=== PATIENT | female | born 1955 | race American Indian/Alaskan Native ===

== ENCOUNTER 2019-08-24 06:01 | Inpatient (IN) | payer SELFPAY ==
[2019-08-24] MEDS ORDERED: ASPIRIN 325 MG TAB PO ONE (06:05)
--- NOTE | 2019-08-24 06:57 | XRay Report ---
CHEST 1 VIEW INDICATION / CLINICAL INFORMATION: Chest Pain. COMPARISON: None available. FINDINGS: SUPPORT DEVICES: None. HEART / MEDIASTINUM: No significant abnormality. LUNGS / PLEURA: Mild pulmonary vascular congestion. Both lungs are otherwise clear. No pneumothorax. ADDITIONAL FINDINGS: No significant additional findings. IMPRESSION: 1. Mild pulmonary vascular congestion. Signer Name: Annia Valle MD Signed: 08/24/2019 6:53 AM Workstation Name: [id number]
--- NOTE | 2019-08-24 07:27 | Emergency Department Report ---
ED Chest Pain HPI - General Chief Complaint: Chest Pain Stated Complaint: CHEST PAIN Time Seen by Provider: 08/24/19 07:14 Source: patient Mode of arrival: Wheelchair Limitations: No Limitations - History of Present Illness Initial Comments: This is a 64-year-old female who came to the emergency department expressly for chest pain. She stated that the chest pain began approximately 2 hours prior to arrival in the emergency department. She did not complain of any neurological symptoms as per triage. She stated that the chest pain radiated to her left arm across her right chest. While she was in the waiting room the triage nurse was informed that she had right arm numbness. I believe they perceive that she had a left facial paresis and thereby a code stroke was called. I did examine the patient in the hallway returning from CT for the first time (which was my first opportunity). The patient was very vague to answer questions. She did describe chest pain that radiated to her left arm. She did describe some "numbness" of her right arm. She did not describe any facial weakness. On my preliminary exam she had no facial weakness. She had no upper or lower extremity drift. The patient was examined by a tele-neurologist. According to the tele- neurologist the patient was "ataxic". She also complained to the neurologist of right-sided weakness since yesterday. The neurologist also stated stated that she did not find any drift. She recommended that the patient have a CTA. This will be discussed with the admitting hospitalist. The patient's blood work is pending. The neurologist note is yet pending. The patient is a vague and a poor historian. She told me that she was treated for "fibrillation". She denied being treated for a heart attack in the past or being on anticoagulation. She has a history of hypertension and she is an insulin-dependent diabetic. Her Accu-Chek was in the 60s. I reexamined the patient and took a more detailed history: Patient states that her symptoms began at approximately 2:30 in the morning. However she is very variable with her account of symptoms. She states that her right arm numbness began in the waiting room. Thereafter, she states that she had numbness in her right arm and weakness in her right arm and leg since 2:30 in the morning. Her history is very variable. She states that she has a history of an anxiety disorder and previous prescription for xanax. She also is very variable in her history of chest pain. She stated that she had a heart attack at one point but shortly thereafter she described a cardiac catheterization which revealed no blockages. Thereafter she told me that she did not have a heart attack. Patient stated that at 2:30 in the morning she had difficulty in walking. She had no difficulty with her speech. At the time of this dictation the patient again has no right-sided drift. She states that she has numbness in her right arm. However her fine touch testing localizes perfectly well. On my examination again the patient has an NIH stroke score of 0-1 if we count her vague right arm numbness.. I do not find drift and I do not find a facial paresis. She is already been excluded from TPA by the tele-neurologist based on her last known well time. Being that she has no contraindications, I will order the CTA studies as recommended by the neurologist. She will be admitted to the hospitalist staff. Complaint: chest pain -: Gradual, hour(s) Onset: during rest Pain Location: left chest, right chest Pain Radiation: none Severity: moderate - Related Data Allergies Allergy/AdvReac Type Severity Reaction Status Date / Time iodine Allergy Unknown Verified 08/24/19 06:04 Sulfa (Sulfonamide Allergy Unknown Verified 08/24/19 06:04 Antibiotics) Heart Score - HEART Score History: Highly suspicious EKG: Significant ST-depression Age: 45-65 Risk factors: > 3 risk factors or hx of atherosclerotic disease Troponin: 1-3x normal limit HEART Score: 8 - Critical Actions Critical Actions: >7 pts:50-65% risk of adverse cardiac event. Early invasive measures ED Review of Systems ROS: Stated complaint: CHEST PAIN Other details as noted in HPI Constitutional: denies: chills, fever Eyes: denies: eye pain, eye discharge, vision change ENT: denies: ear pain, throat pain Respiratory: shortness of breath. denies: cough, wheezing Cardiovascular: chest pain. denies: palpitations Endocrine: no symptoms reported Gastrointestinal: nausea. denies: abdominal pain, diarrhea Genitourinary: denies: urgency, dysuria, discharge Musculoskeletal: denies: back pain, joint swelling, arthralgia Skin: denies: rash, lesions Neurological: denies: headache, weakness, paresthesias Psychiatric: denies: anxiety, depression Hematological/Lymphatic: denies: easy bleeding, easy bruising ED Past Medical Hx - Past Medical History Previous Medical History?: Yes Hx Hypertension: Yes Hx Diabetes: Yes - Surgical History Past Surgical History?: Yes Hx Cholecystectomy: Yes Additional Surgical History: hysterectomy, left wrist surgery - Social History Smoking Status: Current Some Day Smoker ED Physical Exam - General Limitations: No Limitations General appearance: alert, in no apparent distress - Head Head exam: Present: atraumatic, normocephalic - Eye Eye exam: Present: normal appearance. Absent: scleral icterus - ENT ENT exam: Present: mucous membranes moist - Neck Neck exam: Present: normal inspection. Absent: tenderness, meningismus - Respiratory Respiratory exam: Present: normal lung sounds bilaterally. Absent: respiratory distress - Cardiovascular Cardiovascular Exam: Present: regular rate, normal rhythm. Absent: systolic murmur, diastolic murmur, rubs, gallop - GI/Abdominal GI/Abdominal exam: Present: soft, normal bowel sounds. Absent: distended, tenderness, guarding, rebound, rigid - Extremities Exam Extremities exam: Present: normal inspection - Back Exam Back exam: Present: normal inspection - Neurological Exam Neurological exam: Present: alert, oriented X3, CN II-XII intact (Questionable facial asymmetry), motor sensory deficit (Questionable) - Psychiatric Psychiatric exam: Present: normal affect, normal mood - Skin Skin exam: Present: warm, dry, intact, normal color. Absent: rash ED Course Vital Signs 08/24/19 06:05 Temperature 98.7 F Pulse Rate 52 L Respiratory 18 Rate Blood Pressure 158/70 O2 Sat by Pulse 99 Oximetry HERBERT score - Herbert Score Age > 65: (0) No Aspirin use within the Past 7 Days: (0) No 3 or more CAD Risk Factors: (1) Yes 2 or more Angina events in past 24 hrs: (0) No Known CAD with more than 50% Stenosis: (0) No Elevated Cardiac Markers: (0) No ST Deviation Greater than 0.5mm: (1) Yes HERBERT Score: 2 ED Medical Decision Making - Lab Data Result diagrams: 08/24/19 06:46 08/24/19 06:46 Laboratory Results - last 24 hr 08/24/19 08/24/19 08/24/19 06:46 06:46 07:37 WBC 8.0 RBC 5.36 H Hgb 14.6 H Hct 44.8 H MCV 84 MCH 27 L MCHC 33 RDW 13.7 Plt Count 350 PT 12.6 INR 0.93 APTT 22.9 L Thrombin Time Sodium 138 Potassium 4.4 Chloride 98.4 Carbon Dioxide 22 Anion Gap 22 BUN 19 H Creatinine 0.8 Estimated GFR > 60 BUN/Creatinine Ratio 24 Glucose 379 H Calcium 9.2 Troponin T 0.016 08/24/19 07:37 WBC RBC Hgb Hct MCV MCH MCHC RDW Plt Count PT INR APTT Thrombin Time 17.2 Sodium Potassium Chloride Carbon Dioxide Anion Gap BUN Creatinine Estimated GFR BUN/Creatinine Ratio Glucose Calcium Troponin T - EKG Data -: EKG Interpreted by Me EKG shows normal: sinus rhythm, axis, intervals, QRS complexes Rate: normal - EKG Data Interpretation: other (High lateral and anterolateral lateral ST depression/T wave inversion consider ischemia) - Radiology Data Radiology results: report reviewed (CT the head showed old encephalomalacia and no acute process. Chest x-ray showed no acute process.) Critical care attestation.: If time is entered above; I have spent that time in minutes in the direct care of this critically ill patient, excluding procedure time. ED Disposition Clinical Impression: Acute coronary syndrome Stroke Qualifiers: CVA mechanism: unspecified Qualified Code(s): I63.9 - Cerebral infarction, unspecified Disposition: 09 OP ADMIT IP TO THIS HOSP Is pt being admited?: Yes Does the pt Need Aspirin: Yes Condition: Stable Referrals: LAURA ALEMAN MD [Primary Care Provider] - 3-5 Days Time of Disposition: 08:13
[2019-08-24 07:34] LABS: Hematocrit 44.8 % (30.3-42.9); Hemoglobin 14.6 gm/dl (10.1-14.3); Mean Corpuscular HGB Conc 33 % (30-34); Mean Corpuscular Volume 84 fl (79-97); Platelet Count 350 K/mm3 (140-440); Red Blood Count 5.36 M/mm3 (3.65-5.03); Red Cell Distribution Width 13.7 % (13.2-15.2)
--- NOTE | 2019-08-24 07:40 | Cat Scan Report ---
CT head/brain wo con INDICATION / CLINICAL INFORMATION: STROKE PROTOCOL!!! Difficulty speaking, right sided weakness. No previous history of any other strok e(s).. TECHNIQUE: Axial CT imaging of the brain was obtained without contrast. Coronal and sagittal reformatted imaging obtained and reviewed. All CT scans at this location are performed using CT dose reduction for ALAR A by means of automated exposure control. COMPARISON: None available. FINDINGS: No intracranial hemorrhage, mass, or midline shift. No extra-axial fluid collection or suggestion of acute territorial infarction. Ventricular system and basilar cisterns are unremarkable. There are a f ew small areas of encephalomalacia in the left inferior temporal lobe and left occipital lobe consist ent with old areas of infarction. Visualized paranasal sinuses and mastoid air cells are well aerated and clear, other than small mucou s retention cyst within the left maxillary antrum.. No calvarial abnormality. IMPRESSION: 1. No evidence for acute CVA at this time. 2. Multiple small areas of encephalomalacia in the left temporal lobe and left occipital lobe most co nsistent with old CVAs. 3. This report was given to Dr. Toure by telephone at 0635 hours [employer]IRLEY OPERATOR Signer Name: Annia Valle MD Signed: 08/24/2019 7:36 AM Workstation Name: [id number]
--- NOTE | 2019-08-24 07:44 | Emergency Department Report ---
ED General Adult HPI - General Chief complaint: Chest Pain Stated complaint: CHEST PAIN Time Seen by Provider: 08/24/19 07:14 Source: patient Mode of arrival: Wheelchair Limitations: No Limitations - Related Data Allergies Allergy/AdvReac Type Severity Reaction Status Date / Time iodine Allergy Unknown Verified 08/24/19 06:04 Sulfa (Sulfonamide Allergy Unknown Verified 08/24/19 06:04 Antibiotics) ED Review of Systems ROS: Stated complaint: CHEST PAIN Other details as noted in HPI ED Past Medical Hx - Past Medical History Previous Medical History?: Yes Hx Hypertension: Yes Hx Diabetes: Yes - Surgical History Past Surgical History?: Yes Hx Cholecystectomy: Yes Additional Surgical History: hysterectomy, left wrist surgery - Social History Smoking Status: Current Some Day Smoker ED Physical Exam - General Limitations: No Limitations ED Course Vital Signs 08/24/19 06:05 Temperature 98.7 F Pulse Rate 52 L Respiratory 18 Rate Blood Pressure 158/70 O2 Sat by Pulse 99 Oximetry - Reevaluation(s) Reevaluation #1: 08/24/19 07:43 [facility] Date of Service: 08/24/2019 07:11:01 Impression: Rule Out Acute Ischemic Stroke Left Hemispheric Infarct Posterior Circulation Infarct Comments/Sign-Out: Patient with history of DM and hypertension who was well at 23:00 on 08/22 and p resents with chest pain, pressure, nausea, dizziness and right sided weakness and numbness that began shortly after 11pm, she already noted weakness on the right at 3:30am when she could not get out of bed. Presentation c/w acute coronary syndrome and concurrent possible posterior circulation/brainstem infarct. Recommend admission for full workup. Mechanism of Stroke: Possible Thromboembolic Small Vessel Disease Metrics: Last Known Well: 08/23/2019 23:00:00 [employer] Notification Time: 08/24/2019 07:10:34 Arrival Time: 08/24/2019 06:08:00 Symptom Onset During ED Stay: 08/24/2019 07:24:26 Stamp Time: 08/24/2019 07:11:01 Time First Login Attempt: 08/24/2019 07:17:01 Video Start Time: 08/24/2019 07:17:01 Symptoms: chest pain and nausea NIHSS Start Assessment Time: 08/24/2019 07:35:07 Patient is not a candidate for tPA. Patient was not deemed candidate for tPA thrombolytics because of Last Well Known Above 4.[address] head showed no acute hemorrhage or acute core infarct. CT head was reviewed and results were: no acute changes, prelim Clinical Presentation is Suggestive of Large Vessel Occlusive Disease, Recommendations are as Follows CTA Head and Neck. Advanced Imaging to be Reviewed by ED Provider and ANUP. ED Physician notified of diagnostic impression and management plan on 08/24/2019 07:40:25 Our recommendations are outlined below. Recommendations: Activate Stroke Protocol Admission/Order Set Stroke/Telemetry Floor Neuro Checks Bedside Swallow Eval DVT Prophylaxis IV Fluids, Normal Saline Head of Bed Below 30 Degrees Euglycemia and Avoid Hyperthermia (PRN Acetaminophen) Initiate Aspirin Recommended Scan: MRI Head Carotid Dopplers Echocardiogram - Transthoracic Echocardiogram Lipid Panel to Be Obtained, if Not Done in the Last 30 Days Therapies: Physical Therapy, Occupational Therapy, Speech Therapy Assessment When Applicable Dysphaghia Screen: Swallow Evaluation, Bedside NPO Until Swallow Evaluation DVT prophylaxis: Lovenox or LMW Heparin Disposition: Neurology Follow Up Recommended Sign Out: Discussed with Emergency Department Provider History of Present Illness: Patient is a 64 year old Female. Patient was brought by EMS for symptoms of chest pain and nausea Patient presented to the hospital with chest pain with radiation to the left arm for two hours prior to arrival. AT home she was reporting right arm numbness. She states at 11pm she went to a movie and afterwards she felt weak and nauseated. Then she began to feel chest pain and naseated at 1-2am. Her right arm was weak and numb on the right and weakness of the right leg around 3:30. She had trouble getting out of bed. She states she was normal at 11pm. Right at change of shift, the daughter alerted the nurse that her mother was experiencing trouble speaking and left facial droop. History includes diabetes and hypertension. CT head showed no acute hemorrhage or acute core infarct. CT head was reviewed. Last seen normal was beyond 4.5 hours of presentation. There is no history of hemorrhagic complications or intracranial hemorrhage. There is no history of Recent Anticoagulants. There is no history of recent major surgery. There is no history of recent stroke. Examination: BP(158/70), Pulse(52), Blood Glucose(344) 1A: Level of Consciousness - Alert; keenly responsive + 0 1B: Ask Month and Age - Both Questions Right + 0 1C: Blink Eyes & Squeeze Hands - Performs Both Tasks + 0 2: Test Horizontal Extraocular Movements - Normal + 0 3: Test Visual Ballard - No Visual Loss + 0 4: Test Facial Palsy (Use Grimace if Obtunded) - Minor paralysis (flat nasol abial fold, smile asymmetry) + 1 5A: Test Left Arm Motor Drift - No Drift for 10 Seconds + 0 5B: Test Right Arm Motor Drift - Drift, but doesn't hit bed + 1 6A: Test Left Leg Motor Drift - No Drift for 5 Seconds + 0 6B: Test Right Leg Motor Drift - Drift, but doesn't hit bed + 1 7: Test Limb Ataxia (FNF/Heel-Gurrola) - Ataxia in 1 Limb + 1 8: Test Sensation - Mild-Moderate Loss: Less Sharp/More Dull + 1 9: Test Language/Aphasia - Normal; No aphasia + 0 10: Test Dysarthria - Mild-Moderate Dysarthria: Slurring but can be understood + 1 11: Test Extinction/Inattention - No abnormality + 0 NIHSS Score: 6 Patient was informed the Neurology Consult would happen via TeleHealth consult by way of interactive audio and video telecommunications and consented to receiving care in this manner. Due to the immediate potential for life-threatening deterioration due to underlying acute neurologic illness, I spent 35 minutes providing critical care. This time includes time for face to face visit via telemedicine, review of medical records, imaging studies and discussion of findings with providers, the patient and/or family. Dr Gina Fragoso [facility] Case [id number] ED Medical Decision Making - Lab Data Result diagrams: 08/24/19 06:46 Critical care attestation.: If time is entered above; I have spent that time in minutes in the direct care of this critically ill patient, excluding procedure time. ED Disposition Clinical Impression: Stroke Disposition: DC-[id number] OP ADMIT IP TO THIS HOSP Is pt being admited?: Yes Does the pt Need Aspirin: Yes Condition: Stable Referrals: LAURA ALEMAN MD [Primary Care Provider] - 3-5 Days
[2019-08-24 07:57] LABS: BUN/Creatinine Ratio 24; Blood Urea Nitrogen 19 mg/dL (7-17); Calcium 9.2 mg/dL (8.4-10.2); Hemolysis Index 5
[2019-08-24 07:59] LABS: INR 0.93 (0.87-1.13)
[2019-08-24 08:00] LABS: Partial Thromboplastin Time 22.9 Sec. (24.2-36.6)
[2019-08-24] MEDS ORDERED: MORPHINE 2 MG/1 ML INJ IV ONE (08:14)
[2019-08-24] MEDS ORDERED: ONDANSETRON 4 MG/2 ML INJ IV ONE (08:14)
--- NOTE | 2019-08-24 08:24 | History and Physical Report ---
History of Present Illness Date of examination: 08/24/19 Date of admission: 08/24/19 Chief complaint: chest pain with rightsided weakness History of present illness: Patient is a 64 y/o AAF with history of DM and hypertension who presents with chest pain, pressure, nausea, dizziness and right sided weakness and numbness that began at 3:30am when she could not get out of bed while waiting in the ER. She describes her chest pain as left-sided retrosternal, exertional, 7 out of 10 in intensity, pressure type and relieved by pain medication that she got in the ER. She also noted to have elevated troponin on 2nd set. Head CT negative for acute CVA, showed multiple small areas of encephalomalacia in the left temporal lobe and left occipital lobe most c/w old CVAs. Tele neurology evaluated the patient and suspected possible posterior circulation/brainstem infarct. Recommend admission for full workup. Patient complains of intermittent chest pain during my encounter but denies any neurological symptoms at the time of admission. Patient is plan to get MRI/MRA of the brain, neurology and cardiology consult placed. Of note, pt reports that she underwent LHC in [place], [place], in 2003. She was told that this test was normal. - Past Medical History Previous Medical History?: Yes Hx Hypertension: Yes Hx Diabetes: Yes - Surgical History Past Surgical History?: Yes Hx Cholecystectomy: Yes Additional Surgical History: hysterectomy, left wrist surgery - Social History Smoking Status: Current Smoker - Family History Hx Hypertension: Yes Hx Diabetes: Yes Review of System: Constitutional: no fever, no chills, no weight loss Ears, eyes, nose, mouth and throat: no nasal congestion, no nasal discharge, no sinus pressure, no vision change, no red eye. Neck: No neck pain or rigidity. Cardiovascular: + chest pain, no orthopnea, no palpitations, no leg swelling Respiratory: No shortness of breath, no cough, no congestion, no wheezing Gastrointestinal: no abdominal pain, no nausea, no vomiting Genitourinary : no dysuria, no hematuria Musculoskeletal: no joint swelling or muscle ache Integumentary: no rash, no pruritis Neurological: no parathesias, no numbness, no tingling Endocrine: no cold or heat intolerance, no polyuria or polydipsia Hematologic/Lymphatic: no easy bruising, no easy bleeding, no gland swelling Allergic/Immunologic: no urticaria, no angioedema. Medications and Allergies Allergies Allergy/AdvReac Type Severity Reaction Status Date / Time iodine Allergy Unknown Verified 08/24/19 06:04 Sulfa (Sulfonamide Allergy Unknown Verified 08/24/19 06:04 Antibiotics) Home Medications Medication Instructions Recorded Confirmed Last Taken Type Glipizide/Metformin HCl 1,000 mg PO BID 08/24/19 08/24/19 1 Day Ago History [glipiZIDE-Metformin 2.5-250 mg] ~08/23/19 Insulin Glargine [Lantus VIAL] 20 unit SUB-Q BID 08/24/19 08/24/19 1 Day Ago History ~08/23/19 Niacin [Niaspan] 500 mg PO DAILY 08/24/19 08/24/19 1 Day Ago History ~08/23/19 amLODIPine 40 mg PO DAILY 08/24/19 08/24/19 1 Day Ago History ~08/23/19 Exam - Physical Exam Narrative exam: GENERAL: well-developed morbidly obese -Citizen Of [place] female lying on bed appeared to be in no discomfort. HEENT: Normocephalic. Atraumatic. No conjunctival congestion or icterus. Patient has moist mucous membranes. NECK: Supple. Trachea midline. CHEST/LUNGS: Clear to auscultated bilaterally, breathing nonlabored. No wheezes crackles or rhonchi. HEART/CARDIOVASCULAR: Regular in rate and rhythm. S1 and S2 positive. ABDOMEN: Abdomen is soft, nontender. Patient has normal bowel sounds. SKIN: There is no rash. Warm and dry. NEURO: No focal motor deficit. Follows command. MUSCULOSKELETAL: No joint effusion or tenderness. EXTRIMITY: No edema, no cyanosis or clubbing. PSYCH: Cooperative. - Constitutional Vitals: Temp Pulse Resp BP Pulse Ox 98.7 F 52 L 18 158/70 99 08/24/19 06:05 08/24/19 06:05 08/24/19 06:05 08/24/19 06:05 08/24/19 06:05 Results - Labs CBC & Chem 7: 08/25/19 05:51 08/25/19 05:51 Labs: Abnormal lab results 08/24/19 08/24/19 08/24/19 Range/Units 06:46 06:46 07:37 RBC 5.36 H (3.65-5.03) M/mm3 Hgb 14.6 H (10.1-14.3) gm/dl Hct 44.8 H (30.3-42.9) % MCH 27 L (28-32) pg APTT 22.9 L (24.2-36.6) Sec. BUN 19 H (7-17) mg/dL Glucose 379 H (65-100) mg/dL - Imaging and Cardiology Chest x-ray: report reviewed CT Scan - head: report reviewed Assessment and Plan Possible acute CVA -- We will admit the patient to remote telemetry - We'll place on aspirin and statin, consulted neurology - CT scan of the head obtained in the ER and shows no acute abnormality, multiple small areas of encephalomalacia in the left temporal lobe and left occipital lobe most c/w old CVAs. - We will get MRI/MRA of the head, 2-D echocardiogram - We will also get hemoglobin A1c level and fasting lipid panel - Allow permissive hypertension, will hold BP meds if patient is taking any at home - Consult PTOT and speech therapist but patient now appears to be totally asymptomatic -Cardiac consistent carb diet - Further management will be based on pending lab results and imaging studies Acute chest pain with NSTEMI - monitor with serial CE and EKG - will place on Aspirin, statin, therapeutic AC if cleared by neuro in light of possible acute CVA - as needed SL NTG and iv morphin for pain - Monitor BP, add betablocker and ACEI if BP tolerates and if MRI is negative for acute stroke - order 2D echo and stress test/cardiac cath in the am based on cardiology recommendation - cardiac diet now, NPO after midnight Age > 65: (0) No Aspirin use within the Past 7 Days: (0) No 3 or more CAD Risk Factors: (1) Yes 2 or more Angina events in past 24 hrs: (0) No Known CAD with more than 50% Stenosis: (0) No Elevated Cardiac Markers: (0) No ST Deviation Greater than 0.5mm: (1) Yes HERBERT Score: 2 Morbid obesity, weight reduction diet and exercise regimen when clinically stable Uncontrolled HTN -Resume home meds if MRI of the brain is negative DM type 2 -SSI for now Noncompliance due to insurance issue, counseled h/o old CVA, cont asp, statin - We'll place on GI prophylaxis to avoid stress ulcer - Place on DVT prophylaxis
[2019-08-24 08:45] LABS: Platelet Estimate Consistent w Auto; RBC Morphology Normal; Total Cells Counted 100
[2019-08-24] MEDS ORDERED: MORPHINE 2 MG/1 ML INJ IV PRN (09:01)
[2019-08-24] MEDS ORDERED: METOCLOPRAMIDE 10 MG TAB PO PRN (09:01)
[2019-08-24] MEDS ORDERED: PROMETHAZINE 25 MG RECT SUPP PR PRN (09:01)
[2019-08-24] MEDS ORDERED: ONDANSETRON 4 MG/2 ML INJ IV PRN (09:01)
[2019-08-24] MEDS ORDERED: MAGNESIUM HYDROXIDE (MOM) ORAL LIQD UDC PO PRN (09:01)
[2019-08-24] MEDS ORDERED: ACETAMINOPHEN 325 MG TAB PO PRN (09:01)
[2019-08-24] MEDS ORDERED: ASPIRIN 325 MG TAB ONE (09:31)
[2019-08-24 10:24] LABS: Chol/HDL Ratio 3.28 %
[2019-08-24 10:46] LABS: Basophils # (Auto) 0.1 K/mm3 (0.0-0.1); Basophils % (Auto) 0.7 % (0.0-1.8); Eosinophils # (Auto) 0.1 K/mm3 (0.0-0.4); Eosinophils % (Auto) 0.8 % (0.0-4.3); Hematocrit 44.3 % (30.3-42.9); Hemoglobin 14.2 gm/dl (10.1-14.3); Lymphocytes # (Auto) 1.9 K/mm3 (1.2-5.4); Lymphocytes % (Auto) 24.5 % (13.4-35.0); Mean Corpuscular HGB Conc 32 % (30-34); Mean Corpuscular Volume 84 fl (79-97); Monocytes # (Auto) 0.3 K/mm3 (0.0-0.8); Monocytes % (Auto) 3.6 % (0.0-7.3); Platelet Count 349 K/mm3 (140-440); Red Blood Count 5.26 M/mm3 (3.65-5.03); Red Cell Distribution Width 13.6 % (13.2-15.2)
[2019-08-24 11:03] LABS: BUN/Creatinine Ratio 24; Blood Urea Nitrogen 19 mg/dL (7-17); Calcium 9.2 mg/dL (8.4-10.2); Hemolysis Index 4
--- NOTE | 2019-08-24 12:15 | Consultation ---
History of Present Illness Consult date: 08/24/19 Requesting physician: LEILA FIGUEROA Consult reason: chest pain History of present illness: The patient is a 64YO female with a past medical history of HTN, DM and tobacco use. She is previously unknown to our practice. She presented with c/o right- sided weakness and chest pain. She states that last night, she watched a movie and after the movie was over (around 11PM) she got up and noted right-sided weakness, right arm numbness, and chest pain. She describes her chest pain as a constant midsternal and left-sided pressure. She then developed nausea and vomited several times. While in ED waiting room, pt developed slurred speech with facial droop and worsening of right-sided weakness and code STROKE was called. Head CT negative for acute CVA, showed multiple small areas of encephalomalacia in the left temporal lobe and left occipital lobe most c/w old CVAs. Pt was evaluated by tele-neurology in ED and excluded from TPA by the tele-neurologist based on her last known well time. On evaluation, pt reports resolution of slurred speech and facial droop. She continues to experience chest pain, right arm numbness and minimal right-sided weakness. Of note, pt reports that she underwent LHC in [place], [place], in 2003. She was told that this test was normal. Additionally, she reports undergoing echocardiogram in the past and was told that her heart has "irregularities" although she cannot recall any additional details. Past History Past Medical History: other (as per HPI) Medications and Allergies Allergies Allergy/AdvReac Type Severity Reaction Status Date / Time iodine Allergy Unknown Verified 08/24/19 06:04 Sulfa (Sulfonamide Allergy Unknown Verified 08/24/19 06:04 Antibiotics) Active Meds: Active Medications Acetaminophen (Tylenol) 650 mg PO Q4H PRN PRN Reason: Pain, Mild (1-3) Aspirin (Ecotrin) 325 mg PO QDAY MINERVA Atorvastatin Calcium (Lipitor) 40 mg PO QHS MINERVA Bisacodyl (Dulcolax) 10 mg HI QDAY PRN PRN Reason: Constipation Docusate Sodium (Colace) 100 mg PO BID MINERVA Magnesium Hydroxide (Milk Of Magnesia) 30 ml PO Q4H PRN PRN Reason: Constipation Metoclopramide HCl (Reglan) 10 mg PO Q6H PRN PRN Reason: Nausea And Vomiting Morphine Sulfate (Morphine) 2 mg IV Q4H PRN PRN Reason: Pain, Moderate (4-6) Ondansetron HCl (Zofran) 4 mg IV Q8H PRN PRN Reason: Nausea And Vomiting Promethazine HCl (Phenergan) 25 mg HI Q6H PRN PRN Reason: Nausea And Vomiting Sodium Chloride (Sodium Chloride Flush Syringe 10 Ml) 10 ml IV PRN PRN PRN Reason: LINE FLUSH Sodium Chloride (Sodium Chloride Flush Syringe 10 Ml) 10 ml IV PRN PRN PRN Reason: LINE FLUSH Review of Systems Constitutional: no weight loss, no weight gain, no fever, no chills, no sweats Ears, nose, mouth and throat: no ear pain, no nose pain, no sinus pressure, no sinus pain Cardiovascular: chest pain, high blood pressure, no orthopnea, no palpitations, no rapid/irregular heart beat, no edema, no syncope, no lightheadedness, no shortness of breath, no dyspnea on exertion, no leg edema Respiratory: no cough, no shortness of breath, no dyspnea on exertion, no congestion, no wheezing, no pain on inspiration Gastrointestinal: nausea, vomiting, no abdominal pain, no diarrhea, no constipation, no change in bowel habits, no hematemesis, no coffee ground emesis Genitourinary Female: no pelvic pain, no flank pain, no dysuria, no urinary frequency, no urgency Musculoskeletal: arm numbness/tingling (right arm), muscle weakness (right- sided), no neck stiffness, no neck pain, no low back pain, no shooting leg pain Integumentary: no rash, no pruritis, no redness, no sores, no wounds Neurological: weakness (right-sided), numbness (right arm), change in speech, no head injury, no paralysis, no seizures, no syncope Psychiatric: no anxiety Endocrine: no cold intolerance, no heat intolerance Hematologic/Lymphatic: no easy bruising, no easy bleeding Allergic/Immunologic: no urticaria Physical Examination Vital Signs Temp Pulse Resp BP Pulse Ox 98.7 F 52 L 18 158/70 99 08/24/19 06:05 08/24/19 06:05 08/24/19 06:05 08/24/19 06:05 03/11/20 06:05 General appearance: no acute distress HEENT: Positive: PERRL, Normocephaly, Mucus Membranes Moist Neck: Positive: neck supple, trachea midline Cardiac: Positive: Reg Rate and Rhythm, S1/S2 Lungs: Positive: Decreased Breath Sounds Neuro: Positive: Weakness (minimal right-sided weakness noted) Abdomen: Negative: Tender Skin: Negative: Rash Musculoskeletal: No Pain Extremities: Absent: edema Results 08/24/19 09:45 08/24/19 09:45 Coagulation 08/24/19 Range/Units 07:37 PT 12.6 (12.2-14.9) Sec. INR 0.93 (0.87-1.13) APTT 22.9 L (24.2-36.6) Sec. Lipids 08/24/19 Range/Units 08:59 Triglycerides 70 (2-149) mg/dL Cholesterol 197 (50-199) mg/dL HDL Cholesterol 60 H (40-59) mg/dL Cholesterol/HDL Ratio 3.28 % CBC 08/24/19 08/24/19 Range/Units 06:46 09:45 WBC 8.0 7.6 (4.5-11.0) K/mm3 RBC 5.36 H 5.26 H (3.65-5.03) M/mm3 Hgb 14.6 H 14.2 (10.1-14.3) gm/dl Hct 44.8 H 44.3 H (30.3-42.9) % Plt Count 350 349 (140-440) K/mm3 Lymph # 1.9 (1.2-5.4) K/mm3 [place] # 0.3 (0.0-0.8) K/mm3 Eos # 0.1 (0.0-0.4) K/mm3 Baso # 0.1 (0.0-0.1) K/mm3 Comprehensive Metabolic Panel 08/24/19 08/24/19 Range/Units 06:46 09:45 Sodium 138 138 (137-145) mmol/L Potassium 4.4 4.8 (3.6-5.0) mmol/L Chloride 98.4 98.7 (98-107) mmol/L Carbon Dioxide 22 24 (22-30) mmol/L BUN 19 H 19 H (7-17) mg/dL Creatinine 0.8 0.8 (0.7-1.2) mg/dL Glucose 379 H 374 H (65-100) mg/dL Calcium 9.2 9.2 (8.4-10.2) mg/dL - Imaging and Cardiology Echo: pending EKG: report reviewed, image reviewed EKG interpretations - Telemetry EKG Rhythm: Sinus Rhythm - EKG Sinus rhythms and dysrhythmias: sinus rhythm Repolarization changes or abnormalities: ST or T wave suggestive of ischemia (diffuse t-wave inversions) Assessment and Plan Anshu noted to be minimally elevated and trending upwards, ECG is noted to be abnormal with diffuse t-wave inversions. Cont to trend Anshu and recommend heparinization if Anshu cont to trend upwards and no contraindications to heparininzation from neurology standpoint. F/u ECG in AM. Initiate ASA, statin, lopressor. Obtain echo. Will tentatively plan for ischemic evaluation (stress test v. LHC) in AM pending clinical course. NPO after MN. Further recs to follow per hospital course. The patient has been seen in conjunction with Dr. Saxena who agrees with the assessment and plan of care. - Patient Problems (1) Acute CVA (cerebrovascular accident) Current Visit: Yes Status: Suspected (2) Chest pain Current Visit: Yes Status: Acute (3) Elevated troponin Current Visit: Yes Status: Acute (4) Abnormal ECG Current Visit: Yes Status: Acute (5) HTN (hypertension) Current Visit: Yes Status: Chronic (6) Diabetes Current Visit: Yes Status: Chronic (7) Tobacco use Current Visit: Yes Status: Chronic
[2019-08-24] MEDS: DOCUSATE SODIUM 100 MG CAP PO SCH ×2 (13:53→21:30)
--- NOTE | 2019-08-24 14:27 | Consultation ---
History of Present Illness Consult date: 08/24/19 Reason for Consult: Right-sided weakness and numbness Chief complaint: Right-sided weakness and numbness History of present illness: Patient is a 64-year-old woman with history of hypertension, diabetes, anxiety. She presented this morning with chest pain. Patient also complained of right- sided numbness and weakness, which began in around 3 AM in the morning. Patient was then brought to [facility] for further evaluation. She states that she does not take aspirin at home. While in the emergency room, she reportedly was noted to have a left facial droop and slurred speech, however this is improved since that time. Past History Past Medical History: other (history of hypertension, diabetes, anxiety) Social history: smoking Family history: hypertension Medications and Allergies Allergies Allergy/AdvReac Type Severity Reaction Status Date / Time iodine Allergy Unknown Verified 08/24/19 06:04 Sulfa (Sulfonamide Allergy Unknown Verified 08/24/19 06:04 Antibiotics) Home Medications Medication Instructions Recorded Confirmed Last Taken Type Glipizide/Metformin HCl 1,000 mg PO BID 08/24/19 08/24/19 1 Day Ago History [glipiZIDE-Metformin 2.5-250 mg] ~08/23/19 Insulin Glargine [Lantus VIAL] 20 unit SUB-Q BID 08/24/19 08/24/19 1 Day Ago History ~08/23/19 Niacin [Niaspan] 500 mg PO DAILY 08/24/19 08/24/19 1 Day Ago History ~08/23/19 amLODIPine 40 mg PO DAILY 08/24/19 08/24/19 1 Day Ago History ~08/23/19 Active Meds: Active Medications Acetaminophen (Tylenol) 650 mg PO Q4H PRN PRN Reason: Pain, Mild (1-3) Aspirin (Ecotrin) 325 mg PO QDAY MINERVA Atorvastatin Calcium (Lipitor) 40 mg PO QHS MINERVA Bisacodyl (Dulcolax) 10 mg RI QDAY PRN PRN Reason: Constipation Docusate Sodium (Colace) 100 mg PO BID [facility] Last Admin: 08/24/19 13:53 Dose: Not Given Documented by: Magnesium Hydroxide (Milk Of Magnesia) 30 ml PO Q4H PRN PRN Reason: Constipation Metoclopramide HCl (Reglan) 10 mg PO Q6H PRN PRN Reason: Nausea And Vomiting Metoprolol Tartrate (Metoprolol) 25 mg PO BID MINERVA Morphine Sulfate (Morphine) 2 mg IV Q4H PRN PRN Reason: Pain, Moderate (4-6) Ondansetron HCl (Zofran) 4 mg IV Q8H PRN PRN Reason: Nausea And Vomiting Promethazine HCl (Phenergan) 25 mg RI Q6H PRN PRN Reason: Nausea And Vomiting Sodium Chloride (Sodium Chloride Flush Syringe 10 Ml) 10 ml IV PRN PRN PRN Reason: LINE FLUSH Sodium Chloride (Sodium Chloride Flush Syringe 10 Ml) 10 ml IV PRN PRN PRN Reason: LINE FLUSH Review of Systems All systems: negative Cardiovascular: chest pain Neurological: weakness, numbness, change in speech Physical Examination - Vital Signs Vital Signs: Vital Signs Temp Pulse Resp BP Pulse Ox 98.7 F 52 L 18 158/70 99 08/24/19 06:05 08/24/19 06:05 08/24/19 06:05 08/24/19 06:05 08/24/19 06:05 - Physical Exam Narrative exam: Patient is alert, awake, oriented x4, follows complex commands. No dysarthria or aphasia noted. PERRL, EOMI, VFF, tongue midline, bilaterally intact to LT, no facial weakness noted. 4/5 in right upper and lower extremities, 5/5 in left upper and lower extremities. Decreased on right to light touch. Bilaterally intact to FTN and HTS. 2+ reflexes throughout. - Constitutional General appearance: comfortable - EENT EENT: Present: ATNC, PERRL, mucous membranes moist, hearing intact, vision intact - Respiratory Respiratory: Present: lungs clear, normal breath sounds - Cardiovascular Cardiovascular: Present: regular rate, normal S1, normal S2 Extremities: Present: no clubbing, cyanosis, no inflammation - Gastrointestinal Gastrointestinal: Present: normoactive bowel sounds, soft, non-tender - Integumentary Integumentary: Present: normal - Musculoskeletal Musculoskeletal: Present: no fluid collection, no pain - Psychiatric Psychiatric: Present: mood/affect appropriate - Level of Consciousness 1a. Level of Consciousness: alert/keenly responsive - LOC Questions 1b. LOC Questions: answers both correctly - LOC Command 1c. LOC Commands: performs tasks correctly - Best Gaze 2. Best Gaze: normal - Visual 3. Visual: no visual loss - Facial Palsy 4. Facial Palsy: normal symmetrical movement - Motor Arm 5a. Motor Arm Left: no drift 5b. Motor Arm Right: no drift - Motor Leg 6a. Motor Leg Left: no drift 6b. Motor Leg Right: no drift - Limb Ataxia 7. Limb Ataxia: absent - Sensory 8. Sensory: mild/moderate sensory loss - Best Language 9. Best Language: no aphasia - Dysarthria 10. Dysarthria: normal - Extinction and Inattention 11. Extinction/Inattention: no abnormality - Scoring Total Score: 1 Stroke Severity: Minor Stroke Results - Laboratory Findings CBC and BMP: 08/24/19 09:45 08/24/19 09:45 Abnormal Lab Findings: Abnormal Labs 08/24/19 08/24/19 08/24/19 06:46 06:46 07:37 RBC 5.36 H Hgb 14.6 H Hct 44.8 H MCH 27 L Seg Neutrophils % Lymphocytes % (Manual) 44.0 H APTT 22.9 L BUN 19 H Glucose 379 H Troponin T LDL Cholesterol Direct HDL Cholesterol 08/24/19 08/24/19 08/24/19 08:59 09:45 09:45 RBC 5.26 H Hgb Hct 44.3 H MCH 27 L Seg Neutrophils % 70.4 H Lymphocytes % (Manual) APTT BUN 19 H Glucose 374 H Troponin T 0.038 H D 0.039 H LDL Cholesterol Direct 132 H HDL Cholesterol 60 H Assessment and Plan Patient is a 64-year-old woman with history of hypertension, diabetes, anxiety, who presents with right-sided numbness and weakness. According patient's clinical findings, it is likely that she has had an acute ischemic stroke. Plan: 1. Stroke: - MRI brain: Pending -MRA head/neck: Pending - CT head: No acute abnormality - Echo: Pending - Cont. ASA - Cont. statin. LDL goal <70. Current LDL 132. - Telemetry monitoring while in house - PT/OT/ST - DVT Ppx: Recommend lovenox 2. Hypertension: - Recommend BP goal of <220/120 to allow for permissive HTN for first 24-48 hours. Can target normotension after that. 3. Chest pain: -Further work-up per primary and cardiology teams. -If patient is felt to have STEMI or NSTEMI, and is requiring heparin infusion, okay to start this from the neurologic standpoint, in order to reduce risk of mortality, as risk of mortality from coronary artery disease outweighs risk of mortality/morbidity from hemorrhagic conversion of possible stroke. - Will continue to monitor patient. Thank you for allowing me to take part in the care of this patient. Jacoby Connor MD Neurology
[2019-08-24] MEDS: ENOXAPARIN 100 MG/1 ML INJ SUB-Q SCH ×2 (19:49→21:31)
[2019-08-24] MEDS: METOPROLOL TARTRATE 25 MG TAB PO SCH (21:30)
[2019-08-24] MEDS: INSULIN LISPRO 100 UNIT/ML SUB-Q SCH (22:02)
[2019-08-25 06:37] LABS: Hematocrit 42.6 % (30.3-42.9); Hemoglobin 13.7 gm/dl (10.1-14.3); Mean Corpuscular HGB Conc 32 % (30-34); Mean Corpuscular Volume 84 fl (79-97); Platelet Count 327 K/mm3 (140-440); Red Blood Count 5.05 M/mm3 (3.65-5.03); Red Cell Distribution Width 13.8 % (13.2-15.2)
[2019-08-25 06:51] LABS: INR 1.01 (0.87-1.13)
[2019-08-25 06:57] LABS: BUN/Creatinine Ratio 24; Blood Urea Nitrogen 17 mg/dL (7-17); Calcium 8.9 mg/dL (8.4-10.2); Hemolysis Index 2
[2019-08-25] MEDS: INSULIN LISPRO 100 UNIT/ML SUB-Q SCH ×4 (07:30→21:53)
[2019-08-25] MEDS ORDERED: HEPARIN/ 0.45% NACL DRIP 25,000 UNIT/500 ML BAG IV SCH (10:00)
[2019-08-25] MEDS ORDERED: NIACIN 500 MG PO SCH (10:00)
[2019-08-25] MEDS ORDERED: ASPIRIN EC 325 MG TAB PO SCH (10:00)
[2019-08-25] MEDS: METOPROLOL TARTRATE 25 MG TAB PO SCH ×2 (10:34→21:53)
[2019-08-25] MEDS: amLODIPine 10 MG TAB PO SCH (10:34)
[2019-08-25] MEDS: DOCUSATE SODIUM 100 MG CAP PO SCH ×2 (10:34→21:51)
--- NOTE | 2019-08-25 11:05 | Progress Note ---
Assessment and Plan Echo reviewed - EF 65-70%, mod LVH, impaired relaxation. Anshu trended upwards overnight, ECG this AM unchanged from prior, pt with no current chest pain. Agree with heparin gtt. Neuro recs regarding heparinization noted and appreciated. Pt was unable to complete brain MRI yesterday due to panic attack. Brain MRI to be attempted again today per primary team. Cont ASA, statin, lopressor. Coronary angiography recommended in setting of NSTEMI. Indications, potential risks and benefits of LHC reviewed with pt and she is agreeable to proceed. Will tentatively plan for LHC in AM pending no neurological contraindications to proceeding with LHC. NPO after MN. The patient has been seen in conjunction with Dr. Saxena who agrees with the assessment and plan of care. - Patient Problems (1) Acute CVA (cerebrovascular accident) Current Visit: Yes Status: Suspected (2) NSTEMI (non-ST elevated myocardial infarction) Current Visit: Yes Status: Acute (3) Chest pain Current Visit: Yes Status: Acute (4) Abnormal ECG Current Visit: Yes Status: Acute (5) HTN (hypertension) Current Visit: Yes Status: Chronic (6) Diabetes Current Visit: Yes Status: Chronic (7) Tobacco use Current Visit: Yes Status: Chronic Subjective Date of service: 08/25/19 Principal diagnosis: ? CVA; NSTEMI Interval history: pt resting in bed, no current chest pain, c/o some left-sided upper back pain. right-sided weakness resolved, right arm numbness persists. in SR on tele with SB noted overnight, HR low 47bpm. Objective Last Vital Signs Temp 98.6 F 08/25/19 03:36 Pulse 60 08/25/19 10:34 Resp 16 08/25/19 03:36 BP 128/58 08/25/19 10:34 Pulse Ox 90 08/25/19 04:00 - Physical Examination General: No Apparent Distress HEENT: Positive: PERRL, Normocephaly, Mucus Membranes Moist Neck: Positive: neck supple, trachea midline Cardiac: Positive: Reg Rate and Rhythm, S1/S2 Lungs: Positive: Decreased Breath Sounds Neuro: Positive: Other (right arm numbness) Abdomen: Negative: Tender Skin: Negative: Rash Musculoskeletal: No Pain Extremities: Absent: edema - Labs and Meds Coagulation 08/25/19 Range/Units 05:51 PT 13.4 (12.2-14.9) Sec. INR 1.01 (0.87-1.13) CBC 08/25/19 Range/Units 05:51 WBC 8.1 (4.5-11.0) K/mm3 RBC 5.05 H (3.65-5.03) M/mm3 Hgb 13.7 (10.1-14.3) gm/dl Hct 42.6 (30.3-42.9) % Plt Count 327 (140-440) K/mm3 Comprehensive Metabolic Panel 08/24/19 08/25/19 Range/Units 09:45 05:51 Sodium 138 137 (137-145) mmol/L Potassium 4.8 4.0 (3.6-5.0) mmol/L Chloride 98.7 99.8 (98-107) mmol/L Carbon Dioxide 24 25 (22-30) mmol/L BUN 19 H 17 (7-17) mg/dL Creatinine 0.8 0.7 (0.7-1.2) mg/dL Glucose 374 H 230 H (65-100) mg/dL Calcium 9.2 8.9 (8.4-10.2) mg/dL - Imaging and Cardiology EKG: report reviewed, image reviewed Echo: report reviewed - Telemetry EKG Rhythm: Sinus Rhythm - EKG Sinus rhythms and dysrhythmias: sinus rhythm Repolarization changes or abnormalities: ST or T wave suggestive of ischemia (diffuse t-wave inversions)
--- NOTE | 2019-08-25 11:21 | Progress Note ---
Assessment and Plan Patient is a 64-year-old woman with history of hypertension, diabetes, anxiety, who presents with right-sided numbness and weakness. According patient's clinical findings, it is likely that she has had an acute ischemic stroke. Plan: 1. Stroke: - MRI brain: Pending -MRA head/neck: Pending - CT head: No acute abnormality - Echo: EF 65-70%, LA normal size, bubble study negative. - Cont. ASA - Cont. statin. LDL goal <70. Current LDL 132. - Telemetry monitoring while in house - PT/OT/ST - DVT Ppx: Recommend lovenox 2. Hypertension: - Recommend BP goal of normotension. 3. Chest pain: -Further work-up per primary and cardiology teams. -Per cardiology, patient requiring heparin infusion. Okay to start this from the neurologic standpoint, in order to reduce risk of mortality, as risk of mortality from coronary artery disease outweighs risk of mortality/morbidity from hemorrhagic conversion of possible stroke. Discussed risks/benefits with patient. - Will continue to monitor patient. Thank you for allowing me to take part in the care of this patient. Jacoby Connor MD Neurology Subjective Date of service: 08/25/19 Principal diagnosis: ? CVA; NSTEMI Interval history: No acute events overnight. Objective - Exam Narrative Exam: Patient is alert, awake, oriented x4, follows complex commands. No dysarthria or aphasia noted. PERRL, EOMI, VFF, tongue midline, bilaterally intact to LT, no facial weakness noted. 4/5 in right lower extremity, 5/5 in RUE, 5/5 in left upper and lower extremities. Decreased on right to light touch. Bilaterally intact to FTN and HTS. 2+ reflexes throughout. - Vital Sign Vital Signs - 12hr 08/24/19 08/25/19 08/25/19 23:34 03:36 04:00 Temperature 98.5 F 98.6 F Pulse Rate 61 58 L Respiratory 18 16 Rate Blood Pressure 134/68 128/55 O2 Sat by Pulse 98 86 90 Oximetry 08/25/19 08/25/19 08/25/19 07:57 10:22 10:34 Temperature 99.0 F 98.4 F Pulse Rate 59 L 52 L 58 L Respiratory 12 14 Rate Blood Pressure 128/54 111/60 128/58 O2 Sat by Pulse 98 98 Oximetry - General Apperance Constitutional: comfortable - EENT EENT: ATNC, PERRL, mucous membranes moist, hearing intact, vision intact - Respiratory Respiratory: lungs clear, normal breath sounds - Cardiovascular Cardiovascular: regular rate, normal S1, normal S2 Extremities: no clubbing, cyanosis, no inflammation - Gastrointestinal Gastrointestinal: normoactive bowel sounds, soft, non-tender - Integumentary Integumentary: normal - Musculoskeletal Musculoskeletal: no fluid collection, no pain - Psychiatric Psychiatric: mood/affect appropriate - Laboratory Findings CBC and BMP: 08/25/19 05:51 08/25/19 05:51 Abnormal Lab Findings: Abnormal Labs 08/24/19 08/24/19 08/24/19 06:46 06:46 07:37 RBC 5.36 H Hgb 14.6 H Hct 44.8 H MCH 27 L Seg Neutrophils % Lymphocytes % (Manual) 44.0 H APTT 22.9 L BUN 19 H Glucose 379 H POC Glucose Troponin T LDL Cholesterol Direct HDL Cholesterol 08/24/19 08/24/19 08/24/19 08:59 09:45 09:45 RBC 5.26 H Hgb Hct 44.3 H MCH 27 L Seg Neutrophils % 70.4 H Lymphocytes % (Manual) APTT BUN 19 H Glucose 374 H POC Glucose Troponin T 0.038 H D 0.039 H LDL Cholesterol Direct 132 H HDL Cholesterol 60 H 08/24/19 08/24/19 08/24/19 14:40 16:08 20:07 RBC Hgb Hct MCH Seg Neutrophils % Lymphocytes % (Manual) APTT BUN Glucose POC Glucose 368 H 308 H Troponin T 0.097 H LDL Cholesterol Direct HDL Cholesterol 08/25/19 08/25/19 08/25/19 05:51 05:51 08:41 RBC 5.05 H Hgb Hct MCH 27 L Seg Neutrophils % Lymphocytes % (Manual) APTT BUN Glucose 230 H POC Glucose 218 H Troponin T 0.654 H* D LDL Cholesterol Direct HDL Cholesterol
[2019-08-25] MEDS ORDERED: SODIUM CHLORIDE 0.9% 500 ML 500 ML IV SCH (12:00)
[2019-08-25] MEDS ORDERED: LORazepam 2 MG/ML VIAL IV ONE ×2 (12:18→13:10)
--- NOTE | 2019-08-25 16:33 | Progress Note ---
Assessment and Plan Possible acute CVA - cont on aspirin and statin, consulted neurology - CT scan of the head obtained in the ER and shows no acute abnormality, multiple small areas of encephalomalacia in the left temporal lobe and left occipital lobe most c/w old CVAs. - MRI/MRA of the head ordered but could not be done because patient is noncooperative, follow-up 2-D echocardiogram -Patient is tolerating oral diet - Further management will be based on pending lab results and imaging studies Acute chest pain with NSTEMI - monitor with serial CE and EKG - cont on Aspirin, statin, heparin drip - as needed SL NTG and iv morphin for pain - Monitor BP, add betablocker and ACEI if BP tolerates -BP now stable and patient is bradycardic - Plan for cardiac cath in the am - cardiac diet now, NPO after midnight Age > 65: (0) No Aspirin use within the Past 7 Days: (0) No 3 or more CAD Risk Factors: (1) Yes 2 or more Angina events in past 24 hrs: (0) No Known CAD with more than 50% Stenosis: (0) No Elevated Cardiac Markers: (0) No ST Deviation Greater than 0.5mm: (1) Yes HERBERT Score: 2 Morbid obesity, weight reduction diet and exercise regimen when clinically stable Uncontrolled HTN -Resumed home meds, on amlodipine DM type 2 -SSI for now Old CVA, cont asp and statin Noncompliance due to insurance issue, counseled - on GI prophylaxis to avoid stress ulcer - DVT prophylaxis, heparin drip Disposition: follow cardiac cath result Subjective Date of service: 08/25/19 Principal diagnosis: ? CVA; NSTEMI Interval history: Patient seen and examined. Medical records and medication list reviewed. No acute event overnight noted by the RN. Patient complains of chest pain but he denies difficulty breathing. Patient is tolerating diet. Discussed plan of care at bedside with patient. Objective - Exam Narrative Exam: GENERAL: well-developed morbidly obese -[place] female lying on bed appeared to be in no discomfort. HEENT: Normocephalic. Atraumatic. No conjunctival congestion or icterus. Patient has moist mucous membranes. NECK: Supple. Trachea midline. CHEST/LUNGS: Clear to auscultated bilaterally, breathing nonlabored. No wheezes crackles or rhonchi. HEART/CARDIOVASCULAR: Regular in rate and rhythm. S1 and S2 positive. ABDOMEN: Abdomen is soft, nontender. Patient has normal bowel sounds. SKIN: There is no rash. Warm and dry. NEURO: No focal motor deficit. Follows command. MUSCULOSKELETAL: No joint effusion or tenderness. EXTRIMITY: No edema, no cyanosis or clubbing. PSYCH: Cooperative. - Constitutional Vitals: Vital Signs - 12hr 08/25/19 08/25/19 08/25/19 07:57 10:00 10:22 Temperature 99.0 F 98.4 F Pulse Rate 59 L 78 52 L Respiratory 12 14 Rate Respiratory Rate [Chest] Blood Pressure 128/54 111/60 O2 Sat by Pulse 98 98 Oximetry 08/25/19 08/25/19 10:34 14:00 Temperature Pulse Rate 58 L Respiratory 20 Rate Respiratory 20 Rate [Chest] Blood Pressure 128/58 O2 Sat by Pulse Oximetry - Labs CBC & Chem 7: 08/25/19 05:51 08/25/19 05:51 Labs: Abnormal lab results 08/24/19 08/24/19 08/25/19 Range/Units 16:08 20:07 05:51 RBC 5.05 H (3.65-5.03) M/mm3 MCH 27 L (28-32) pg Glucose (65-100) mg/dL POC Glucose 368 H 308 H (70-105) Troponin T (0.00-0.029) ng/mL 08/25/19 08/25/19 08/25/19 Range/Units 05:51 08:41 11:41 RBC (3.65-5.03) M/mm3 MCH (28-32) pg Glucose 230 H (65-100) mg/dL POC Glucose 218 H 301 H (70-105) Troponin T 0.654 H* D (0.00-0.029) ng/mL 08/25/19 Range/Units 16:23 RBC (3.65-5.03) M/mm3 MCH (28-32) pg Glucose (65-100) mg/dL POC Glucose 231 H (70-105) Troponin T (0.00-0.029) ng/mL
[2019-08-25] MEDS: NIACIN ER 500 MG TAB PO SCH (21:57)
[2019-08-26] MEDS ORDERED: NITROGLYCERIN 0.4 MG TAB SUBL SL PRN (00:28)
[2019-08-26 04:38] LABS: Basophils # (Auto) 0.1 K/mm3 (0.0-0.1); Eosinophils % (Auto) 0.2 % (0.0-4.3); Hematocrit 42.6 % (30.3-42.9); Hemoglobin 13.7 gm/dl (10.1-14.3); Lymphocytes # (Auto) 3.7 K/mm3 (1.2-5.4); Lymphocytes % (Auto) 29.6 % (13.4-35.0); Mean Corpuscular HGB Conc 32 % (30-34); Mean Corpuscular Volume 84 fl (79-97); Platelet Count 301 K/mm3 (140-440); Red Cell Distribution Width 13.7 % (13.2-15.2)
[2019-08-26 04:53] LABS: BUN/Creatinine Ratio 27; Blood Urea Nitrogen 19 mg/dL (7-17); Calcium 8.8 mg/dL (8.4-10.2); Hemolysis Index 1; INR 1.05 (0.87-1.13)
[2019-08-26] MEDS ORDERED: SODIUM CHLORIDE 0.9% 500 ML 500 ML ONE ×2 (09:38→10:11)
[2019-08-26] MEDS ORDERED: ASPIRIN EC 325 MG TAB PO ONE ×2 (09:39→09:40)
[2019-08-26] MEDS ORDERED: SODIUM CHLORIDE 0.9% 500 ML 500 ML IV SCH (10:00)
[2019-08-26] MEDS ORDERED: PANTOPRAZOLE 40 MG TAB PO SCH (10:00)
[2019-08-26] MEDS: INSULIN REGULAR, HUMAN 100 UNITS/1 ML SUB-Q SCH ×5 (10:23→23:07)
[2019-08-26] MEDS ORDERED: diphenhydrAMINE 50 MG/ML VIAL ONE (10:29)
[2019-08-26] MEDS ORDERED: methylPREDNISolone Sod Succinate 125 MG/2 ML INJ ONE (10:29)
[2019-08-26] MEDS ORDERED: diphenhydrAMINE 50 MG/ML VIAL IV ONE (10:32)
[2019-08-26] MEDS ORDERED: methylPREDNISolone Sod Succinate 125 MG/2 ML INJ IV ONE (10:33)
[2019-08-26] MEDS ORDERED: HEPARIN/NS 5000 UNIT/500ML 1,000 ML IR ONE (10:51)
[2019-08-26] MEDS ORDERED: LIDOCAINE (2%) 20 MG/1 ML VIAL 20 ML MDV INFILTRATI ONE (10:52)
[2019-08-26] MEDS ORDERED: NITROGLYCERIN SYRINGE 0 ML ONE (10:53)
--- NOTE | 2019-08-26 11:04 | Progress Note ---
Assessment and Plan Proceed with [facility]. Await findings. The patient has been seen in conjunction with Dr. Saxena who agrees with the assessment and plan of care. - Patient Problems (1) Acute CVA (cerebrovascular accident) Current Visit: Yes Status: Suspected (2) NSTEMI (non-ST elevated myocardial infarction) Current Visit: Yes Status: Acute (3) Chest pain Current Visit: Yes Status: Acute (4) Abnormal ECG Current Visit: Yes Status: Acute (5) HTN (hypertension) Current Visit: Yes Status: Chronic (6) Diabetes Current Visit: Yes Status: Chronic (7) Tobacco use Current Visit: Yes Status: Chronic Subjective Date of service: 08/26/19 Principal diagnosis: ? CVA; NSTEMI Interval history: Pt for [facility] today, no current cardiac complaints. in SR on tele. Objective Last Vital Signs Temp 98.5 F 08/26/19 08:04 Pulse 59 L 08/26/19 08:04 Resp 18 08/26/19 08:04 BP 130/53 08/26/19 08:04 Pulse Ox 98 08/26/19 08:04 - Physical Examination General: No Apparent Distress HEENT: Positive: PERRL, Normocephaly, Mucus Membranes Moist Neck: Positive: neck supple, trachea midline Cardiac: Positive: Reg Rate and Rhythm, S1/S2 Lungs: Positive: Decreased Breath Sounds Neuro: Positive: Other (right arm numbness) Abdomen: Negative: Tender Skin: Negative: Rash Musculoskeletal: No Pain Extremities: Absent: edema - Labs and Meds Coagulation 08/26/19 Range/Units 04:24 PT 13.8 (12.2-14.9) Sec. INR 1.05 (0.87-1.13) CBC 08/26/19 Range/Units 04:24 WBC 12.5 H (4.5-11.0) K/mm3 RBC 5.10 H (3.65-5.03) M/mm3 Hgb 13.7 (10.1-14.3) gm/dl Hct 42.6 (30.3-42.9) % Plt Count 301 (140-440) K/mm3 Lymph # 3.7 (1.2-5.4) K/mm3 [place] # 1.0 H (0.0-0.8) K/mm3 Eos # 0.0 (0.0-0.4) K/mm3 Baso # 0.1 (0.0-0.1) K/mm3 Comprehensive Metabolic Panel 08/26/19 Range/Units 04:24 Sodium 138 (137-145) mmol/L Potassium 3.9 (3.6-5.0) mmol/L Chloride 101.9 (98-107) mmol/L Carbon Dioxide 25 (22-30) mmol/L BUN 19 H (7-17) mg/dL Creatinine 0.7 (0.7-1.2) mg/dL Glucose 260 H (65-100) mg/dL Calcium 8.8 (8.4-10.2) mg/dL - Imaging and Cardiology EKG: report reviewed, image reviewed Echo: report reviewed (EF 65-70%, mod LVH, impaired relaxation. ) - Telemetry EKG Rhythm: Sinus Rhythm - EKG Sinus rhythms and dysrhythmias: sinus rhythm Repolarization changes or abnormalities: ST or T wave suggestive of ischemia (diffuse t-wave inversions)
[2019-08-26] MEDS: MIDAZOLAM 2 MG/2 ML INJ ONE ×2 (11:14→11:26)
[2019-08-26] MEDS: VERAPAMIL 5 MG/2 ML INJ ONE ×2 (11:15→11:28)
--- NOTE | 2019-08-26 11:20 | Event Note ---
Date: 08/26/19 Awaiting left heart catheterization.
[2019-08-26] MEDS: fentaNYL 100 MCG/2 ML INJ ONE ×2 (11:22→11:26)
[2019-08-26] MEDS: HEPARIN 10,000 UNITS/10 ML VIAL ONE ×2 (11:24→11:28)
--- NOTE | 2019-08-26 13:23 | Event Note ---
Date: 08/26/19 S/p [facility] this AM which showed multi vessel CAD. Pt to be tx to [facility] where Dr. Wilder has agreed to accept for possible revascularization. Elis CANTRELL NP / DR. MARTINI
[2019-08-26] MEDS ORDERED: INSULIN REGULAR, HUMAN 100 UNITS/1 ML ONE (13:39)
--- NOTE | 2019-08-26 13:41 | Cardiac Catherization Report ---
INDICATION FOR PROCEDURE: The patient is a 64-year-old female with history of hypertension and diabetes mellitus presented with complaints of transient neurological symptoms along with chest pain. The patient was noted to have elevated troponins consistent with non-STEMI. The patient was evaluated by neurologist and no acute abnormalities noted on the testing. Because of this, the patient is cleared to have cardiac workup done including coronary angiography. Hence, the patient has a history of being ALLERGIC TO IODINE. Hence received IV Solu-Medrol and IV Benadryl. DESCRIPTION OF PROCEDURE: The patient was brought to the catheterization laboratory in a fasting condition. The patient was explained of the procedure, potential complications and alternatives of therapy available. The patient was evaluated for moderate sedation and was felt to be appropriate candidate for moderate sedation and received IV Versed and fentanyl, already patient received IV Solu-Medrol and 25 mg of IV Benadryl. The patient was prepared in standard fashion. Local anesthesia was given in the right wrist area. Right radial artery puncture was made using 21-gauge arterial puncture needle. Subsequently, 5-English slender sheath was introduced. A 5-English multipurpose catheter was used to obtain the angiograms of the left coronary artery in multiple views. Subsequently, the patient moved her hand and radial sheath almost came out. It has to be reintroduced at a regular 6-English sheath and JR4 catheter was used to obtain the angiograms of the right coronary artery and left ventriculogram done in WILKS projection using hand injection. At the end of the procedure, catheter and sheath were removed and good hemostasis was achieved with radial band application. The patient tolerated the procedure well. However, the patient was not cooperative, moving her hand throughout the procedure. The patient achieved good hemostasis achieved with pressure bandage. Following findings were noted. HEMODYNAMICS: 1. Opening aortic pressure 153/69, left ventricular pressure 153/15. No gradient across the aortic valve. Estimated ejection fraction 60-65%. 2. Left ventriculogram done in WILKS projection showed normal sized left ventricle with normal contractility. Mitral regurgitation could not be evaluated because of limited amount of dye injected. 3. Right coronary artery dominant vessel shows significant 80% stenosis proximally and 100% occluded in the mid part with retrograde filling on LCA injection. 4. Left coronary artery arises normally from left coronary cusp. Left main without significant disease. LAD shows focal 70-80% proximal LAD lesion. Rest of the LAD showed mild irregularities. Circumflex artery is supplying multiple marginal branches. Proximal anterolateral branch showed 80% proximal lesion with a distal vessel being fairly large vessel. Similarly distal circumflex artery shows 60-70% lesion in the distal part before supplying the medium sized posterolateral branches. FINAL IMPRESSION: 1. Normal sized left ventricle with normal contractility. 2. Severe triple vessel disease with normal left ventricular systolic function as mentioned above. It has also been noted the patient has moderate diffuse calcifications throughout the coronary artery. Considering her history of diabetes mellitus and severe triple vessel disease, would get revascularization maybe preferably by surgically. However, she has underlying neurological issues. We will discuss with cardiothoracic surgeon. The patient tolerated the procedure well. No untoward complications were noted. At the end of the procedure, the patient is communicating well, able to move all the extremities. The patient's sedation started at 11:22 a.m. and ended at 11:41 a.m. JOB# [id number] MJ/VIELKA
[2019-08-26] MEDS: DOCUSATE SODIUM 100 MG CAP PO SCH ×2 (16:20→23:06)
[2019-08-26] MEDS: amLODIPine 10 MG TAB PO SCH (16:21)
[2019-08-26] MEDS: METOPROLOL TARTRATE 25 MG TAB PO SCH ×2 (16:21→23:07)
--- NOTE | 2019-08-26 16:40 | Progress Note ---
Assessment and Plan Patient is a 64-year-old woman with history of hypertension, diabetes, anxiety, who presents with right-sided numbness and weakness. According patient's clinical findings, it is likely that she has had an acute ischemic stroke. Plan: 1. Stroke: - MRI brain: unable to be performed due to claustrophobia, attempted with ativan however unsuccessful. -MRA head/neck: unable to be performed due to claustrophobia - Will check CTA head/neck and repeat CT head to assess extent of infarct. - CT head on admission: No acute abnormality - Patient had coronoary angiogram today, and plan to transfer to [place] for further treatment. - Echo: EF 65-70%, LA normal size, bubble study negative. - Cont. ASA - Cont. statin. LDL goal <70. Current LDL 132. - Telemetry monitoring while in house - PT/OT/ST - DVT Ppx: Recommend lovenox 2. Hypertension: - Recommend BP goal of normotension. 3. Chest pain: -Further work-up per primary and cardiology teams. -Per cardiology, patient requiring heparin infusion. Okay to start this from the neurologic standpoint, in order to reduce risk of mortality, as risk of mortality from coronary artery disease outweighs risk of mortality/morbidity from hemorrhagic conversion of possible stroke. Discussed risks/benefits with patient. -Will sign off, as I am not covering neurology service over the weekend. Please consult neurologist covering the service over the weekend for further neurologic monitoring and management. Thank you for allowing me to take part in the care of this patient. Jacoby Connor MD Neurology Subjective Date of service: 08/26/19 Principal diagnosis: ? CVA; NSTEMI Interval history: No acute events overnight. Patient had coronary angiogram today. Objective - Exam Narrative Exam: Patient is alert, awake, oriented x4, follows complex commands. No dysarthria or aphasia noted. PERRL, EOMI, VFF, tongue midline, bilaterally intact to LT, no facial weakness noted. 4/5 in right lower extremity, 5/5 in RUE, 5/5 in left upper and lower extremities. Decreased on right to light touch. Bilaterally intact to FTN and HTS. 2+ reflexes throughout. - Vital Sign Vital Signs - 12hr 08/26/19 08/26/19 08/26/19 08:04 12:00 12:15 Temperature 98.5 F 99.2 F Pulse Rate 59 L 57 L 62 Respiratory 18 16 22 Rate Blood Pressure 130/53 123/63 101/50 O2 Sat by Pulse 98 98 Oximetry 08/26/19 08/26/19 08/26/19 12:30 12:45 13:00 Temperature Pulse Rate 56 L 62 62 Respiratory 16 19 20 Rate Blood Pressure 109/57 107/47 123/58 O2 Sat by Pulse 98 96 95 Oximetry 08/26/19 08/26/19 08/26/19 13:30 14:00 15:00 Temperature Pulse Rate 65 66 63 Respiratory 16 13 Rate Blood Pressure 123/62 130/55 149/76 O2 Sat by Pulse 97 97 96 Oximetry 08/26/19 16:21 Temperature Pulse Rate 63 Respiratory Rate Blood Pressure 149/76 O2 Sat by Pulse Oximetry - General Apperance Constitutional: comfortable - EENT EENT: ATNC, PERRL, mucous membranes moist - Respiratory Respiratory: lungs clear, normal breath sounds - Cardiovascular Cardiovascular: regular rate, normal S1, normal S2 Extremities: no clubbing, cyanosis, no inflammation - Gastrointestinal Gastrointestinal: normoactive bowel sounds, soft, non-tender - Integumentary Integumentary: normal - Musculoskeletal Musculoskeletal: no fluid collection, no pain - Psychiatric Psychiatric: mood/affect appropriate - Laboratory Findings CBC and BMP: 08/26/19 04:24 08/26/19 04:24 Abnormal Lab Findings: Abnormal Labs 08/24/19 08/24/19 08/24/19 06:46 06:46 07:37 WBC RBC 5.36 H Hgb 14.6 H Hct 44.8 H MCH 27 L [place] % (Auto) [place] # Seg Neutrophils % Lymphocytes % (Manual) 44.0 H APTT 22.9 L Heparin Anti-Xa Level BUN 19 H Glucose 379 H POC Glucose Hemoglobin A1c Troponin T LDL Cholesterol Direct HDL Cholesterol 08/24/19 08/24/19 08/24/19 08:59 09:45 09:45 WBC RBC 5.26 H Hgb Hct 44.3 H MCH 27 L [place] % (Auto) [place] # Seg Neutrophils % 70.4 H Lymphocytes % (Manual) APTT Heparin Anti-Xa Level BUN 19 H Glucose 374 H POC Glucose Hemoglobin A1c Troponin T 0.038 H D 0.039 H LDL Cholesterol Direct 132 H HDL Cholesterol 60 H 08/24/19 08/24/19 08/24/19 14:40 16:08 20:07 WBC RBC Hgb Hct MCH [place] % (Auto) [place] # Seg Neutrophils % Lymphocytes % (Manual) APTT Heparin Anti-Xa Level BUN Glucose POC Glucose 368 H 308 H Hemoglobin A1c Troponin T 0.097 H LDL Cholesterol Direct HDL Cholesterol 08/25/19 08/25/19 08/25/19 05:51 05:51 08:41 WBC RBC 5.05 H Hgb Hct MCH 27 L [place] % (Auto) [place] # Seg Neutrophils % Lymphocytes % (Manual) APTT Heparin Anti-Xa Level BUN Glucose 230 H POC Glucose 218 H Hemoglobin A1c Troponin T 0.654 H* D LDL Cholesterol Direct HDL Cholesterol 08/25/19 08/25/19 08/25/19 11:41 16:23 20:43 WBC RBC Hgb Hct MCH [place] % (Auto) [place] # Seg Neutrophils % Lymphocytes % (Manual) APTT Heparin Anti-Xa Level BUN Glucose POC Glucose 301 H 231 H 279 H Hemoglobin A1c Troponin T LDL Cholesterol Direct HDL Cholesterol 08/25/19 08/26/19 08/26/19 22:36 04:24 04:24 WBC 12.5 H RBC 5.10 H Hgb Hct MCH 27 L [place] % (Auto) 8.0 H [place] # 1.0 H Seg Neutrophils % Lymphocytes % (Manual) APTT Heparin Anti-Xa Level 0.24 L BUN 19 H Glucose 260 H POC Glucose Hemoglobin A1c Troponin T 0.743 H* LDL Cholesterol Direct HDL Cholesterol 08/26/19 08/26/19 08/26/19 04:24 07:05 08:19 WBC RBC Hgb Hct MCH [place] % (Auto) [place] # Seg Neutrophils % Lymphocytes % (Manual) APTT Heparin Anti-Xa Level BUN Glucose POC Glucose 199 H 230 H Hemoglobin A1c 11.7 H Troponin T LDL Cholesterol Direct HDL Cholesterol 08/26/19 08/26/19 13:44 16:35 WBC RBC Hgb Hct MCH [place] % (Auto) [place] # Seg Neutrophils % Lymphocytes % (Manual) APTT Heparin Anti-Xa Level BUN Glucose POC Glucose 368 H 474 H Hemoglobin A1c Troponin T LDL Cholesterol Direct HDL Cholesterol
--- NOTE | 2019-08-26 17:04 | Vascular Lab Report ---
"DUPLEX DOPPLER ULTRASOUND CAROTID, BILATERAL INDICATION: stroke. COMPARISON: None available. FINDINGS: RIGHT CAROTID: Mild to moderate generalized nonobstructive atherosclerosis is present. CCA velocity: 93.3 cm/sec. ICA peak systolic velocity: 114.9 cm/sec. ICA/CCA PSV Ratio: 1.23. Right Vertebral Artery: Antegrade flow. LEFT CAROTID: There is mild to moderate generalized atherosclerosis resulting in up to 50% stenosis b y diameter. CCA velocity: 86.9 cm/sec. ICA peak systolic velocity: 108.0 cm/sec. ICA/CCA PSV Ratio: 1.24. Left Vertebral Artery: Antegrade flow. IMPRESSION: 1. Right Internal Carotid Artery: Less than 50% diameter stenosis. 2. Left Internal Carotid Artery: 50-69% diameter stenosis. Velocity criteria are extrapolated from diameter data as defined by the Society of Radiologists in Ul trasound Consensus Conference, Radiology 2003; 229;340-346. Degree of || ICA PSV || Plaque || ICA/CCA Stenosis (%) || (cm/sec) || estimate (%) || PSV Ratio - Normal...............<125..............None.................<2.0 - <50....................<125..............<50....................<2.0 - 50-69................125-230.........>50....................2.0-4.0 - >70 but <100....>230..............>50....................>4.0 - Near...................High, low, .....visible................variable occlusion or none - Total...................None.............visible;................N/A occlusion no lumen Signer Name: Mahad López MD Signed: 08/26/2019 5:00 PM Workstation Name: [id number]"
--- NOTE | 2019-08-26 17:57 | Cat Scan Report ---
CT head/brain wo con INDICATION: stroke. TECHNIQUE: Routine CT head without contrast. All CT scans at this location are performed using CT dos e reduction for ALARA by means of automated exposure control. COMPARISON: Head CT on 08/24/2019. FINDINGS: BRAIN / INTRACRANIAL CONTENTS: No acute hemorrhage, mass effect, midline shift, or hydrocephalus. No appreciable acute large territorial or lacunar infarct. There is a stable remote left INFECTION PREVENTION SPECIALIST territory i nfarct. There is no adverse change from the prior exam. ORBITS: No significant abnormality of visualized orbits. SINUSES / MASTOIDS: No significant abnormality of visualized sinuses and mastoid air cells. ADDITIONAL FINDINGS: None. IMPRESSION: 1. No acute intracranial abnormality. No adverse change from the prior exam. Signer Name: Bruce La MD Signed: 08/26/2019 5:53 PM Workstation Name: [id number]
--- NOTE | 2019-08-26 19:46 | Discharge Summary ---
Providers - Providers Date of Admission: 08/24/19 08:15 Date of discharge: 08/26/19 Attending physician: BRODERICK HAYES 08/24/19 Consult to Cardiac Rehabilitation [CONS] Routine Reason For Exam: Phase I 08/24/19 08:16 Consult to Cardiology [CONS] Urgent Consulting Provider: TRACY MARTINI Reason For Exam: chest pain with ?stroke sx, abn EKG 08/24/19 08:56 Consult to Physician [CONS] Routine Comment: Consulting Provider: MARCELA RUIZ Physician Instructions: Reason For Exam: possible CVA 08/24/19 09:01 Consult to Case Management [CONS] Routine Services Needed at Discharge: Home Health Services Notified:: case mangement Consult to Dietitian/Nutrition [CONS] Routine Physician Instructions: Reason For Exam: Reason for Consult: Nutrition Recommendations Reason for Consult: Diet education Occupational Therapy Evaluate and Treat [CONS] Routine Comment: Reason For Exam: Neuro deficits Physical Therapy Evaluation and Treat [CONS] Routine Comment: Reason For Exam: Neuro deficits [facility] Condition: Stable Procedures: Echocardiogram preserved ejection fraction. Left heart catheterization showed multivessel disease. CT scan had encephalomalacia of temporal and possible lobes consistent with old CVA. Hospital course: Patient 64-year-old female with a history of diabetes hypertension hyperlipidemia presented with chest pain and right upper extremity weakness. Patient was worked up both for stroke which was ruled out. Patient CT scan showed old strokes. MRI was not done secondary to medicinal noncompliance. Patient was placed on aspirin and statin however was ruled out for CVA strength returned. Patient also was found to have an non-STEMI. Cardiac catheterization showed multiple vessel disease patient therefore was transferred to [place] for further surgical evaluation. Upon discharge patient chest pain-free. Given aspirin and statin placed on a heparin drip. Disposition: DC/TX-70 ANOTHER TYPE HLTHCARE - Discharge Diagnoses (1) Acute coronary syndrome Status: Acute (2) Elevated troponin Status: Acute (3) NSTEMI (non-ST elevated myocardial infarction) Status: Acute (4) HTN (hypertension) Status: Chronic (5) Tobacco use Status: Chronic Core Measure Documentation - Palliative Care Palliative Care/ Comfort Measures: Not Applicable - Core Measures Any of the following diagnoses?: none Exam - Constitutional Vitals: Temp Pulse Resp BP Pulse Ox 99.2 F 63 18 149/76 99 03/13/20 12:00 08/26/19 16:21 08/26/19 15:00 08/26/19 16:21 08/26/19 15:00 General appearance: Present: no acute distress, well-nourished - EENT Eyes: Present: PERRL ENT: hearing intact, clear oral mucosa - Neck Neck: Present: supple, normal ROM - Respiratory Respiratory effort: normal Respiratory: bilateral: CTA - Cardiovascular Heart Sounds: Present: S1 & S2. Absent: rub, click - Extremities Extremities: pulses symmetrical, No edema Peripheral Pulses: within normal limits - Abdominal General gastrointestinal: Present: soft, non-tender, non-distended, normal bowel sounds Female genitourinary: Present: normal - Integumentary Integumentary: Present: clear, warm, dry - Musculoskeletal Musculoskeletal: gait normal, strength equal bilaterally - Psychiatric Psychiatric: appropriate mood/affect, intact judgment & insight - Neurologic Neurologic: CNII-XII intact, moves all extremities Plan Activity: no restrictions Weight Bearing Status: Non-Weight Bearing Diet: low fat, low cholesterol Follow up with: LAURA ALEMAN MD [Primary Care Provider] - 3-5 Days
[2019-08-26] MEDS ORDERED: INSULIN REGULAR, HUMAN 100 UNITS/1 ML SUB-Q ONE (22:30)
[2019-08-26] MEDS: NIACIN ER 500 MG TAB PO SCH (23:05)
[2019-08-27 00:51] VITALS: BP 135/70
== END 2019-08-27 05:53 | disposition short-term general hospital (02) | DRG 281 ==
LOC: ED 06:01 → 4A 08:15
PROVIDERS: ADMIT Internal Medicine; ATTEND Internal Medicine
PROC: 4A023N7 Measurement of Cardiac Sampling and Pressure, Left Heart, Percutaneous Approach (ICD-10-PCS; principal; 2019-08-26)
PROC: B2111ZZ Fluoroscopy of Multiple Coronary Arteries using Low Osmolar Contrast (ICD-10-PCS; 2019-08-26)
PROC: B2151ZZ Fluoroscopy of Left Heart using Low Osmolar Contrast (ICD-10-PCS; 2019-08-26)
DX: I21.4 Non-ST elevation (NSTEMI) myocardial infarction (principal); Z68.41 Body mass index [BMI] 40.0-44.9, adult; E11.9 Type 2 diabetes mellitus without complications; I10 Essential (primary) hypertension; I24.9 Acute ischemic heart disease, unspecified; F17.200 Nicotine dependence, unspecified, uncomplicated; F41.9 Anxiety disorder, unspecified; F40.240 Claustrophobia; I25.10 Atherosclerotic heart disease of native coronary artery without angina pectoris; R94.31 Abnormal electrocardiogram [ECG] [EKG]; E66.01 Morbid (severe) obesity due to excess calories; Z71.3 Dietary counseling and surveillance; Z86.73 Personal history of transient ischemic attack (TIA), and cerebral infarction without residual deficits; Z91.14 Patient's other noncompliance with medication regimen; Z82.49 Family history of ischemic heart disease and other diseases of the circulatory system; Z88.2 Allergy status to sulfonamides; Z91.041 Radiographic dye allergy status; Z79.899 Other long term (current) drug therapy; Z79.4 Long term (current) use of insulin; Z90.49 Acquired absence of other specified parts of digestive tract; Z90.710 Acquired absence of both cervix and uterus
CPT/HCPCS: 36415; 70450; 71045; 80048; 80061; 82947; 82962; 83036; 84484; 85007; 85025; 85027; 85520; 85610; 85670; 85730; 93005; 93010; 93306; 93880; 96372; 96374; 96375; 99406; G0378; A9270-GY; J1200; J1644; J1650; J1815; J2060; J2250; J2270; J2405; J2930; J3010; J7040